=== PATIENT | male | born 1990 | race African-American/Black ===

== ENCOUNTER 2023-12-05 00:26 | Emergency (ER) | payer SELFPAY ==
[~2023-12-05] VITALS: Ht 172.7 cm; Wt 87.6 kg
[2023-12-05 00:40] VITALS: TEMP 97.7
[2023-12-05] MEDS ORDERED: DEXAMETHASONE 10 MG/ML VIAL IM ONE (01:15)
[2023-12-05 01:38] VITALS: PULSE 80; RESP 16; O2SAT 96
[2023-12-05] MEDS: IPRATROPIUM/ALBUTEROL 0.5-3(2.5)MG/3ML NEB HHN ONE ×2 (01:38→03:05)
[2023-12-05] MEDS ORDERED: ALBU90AE INH (02:49)
[2023-12-05] MEDS ORDERED: PRED5TAB48 MT (02:49)
[2023-12-05 03:05] VITALS: PULSE 88; RESP 20; O2SAT 97
[2023-12-05] MEDS: DEXAMETHASONE 10 MG/ML VIAL IM NR (04:31)
[2023-12-05 04:33] VITALS: BP 131/94; PULSE 74; RESP 18; O2SAT 96
== END 2023-12-05 04:36 | disposition home or self-care (01) ==
LOC: ER 00:35
DX: J45.901 Unspecified asthma with (acute) exacerbation (principal)
CPT/HCPCS: 71045; 94640; 93005; 96372; 99284; J1100; Z7610 ×2